=== PATIENT | male | born 1970 | race Caucasian/White ===

== ENCOUNTER 2019-03-14 09:50 | Emergency (ER) | payer SELFPAY ==
[2019-03-14 09:53] VITALS: BP 148/99; PULSE 58; RESP 18; TEMP 36.6; O2SAT 100
--- NOTE | 2019-03-14 10:04 | ED.GENADUL_ITS ---
Discharge Plan Disposition Patient Disposition: HOME Condition: Improving Discharge Details Chief Complaint: RespSymp Clinical Impression: Acute bronchitis Primary Care Provider: None,None ED Provider: Lars Emmanuel Home Meds and New Rx's Prescriptions: New amoxicillin-pot clavulanate 875-125 mg tablet 1 tab PO BID 10 Days Qty: 20 RF: 0 Discharge Instructions Instructions: Acute Bronchitis (ED) Additional Instructions: Home to rest. Small, frequent sips of fluids to maintain hydration. The staff at [facility] may assist you with exploring insurance opt ions. Take antibiotics as prescribed. Return for difficulty breathing, no worsening symptoms, or any other acute concern Medical Decision Making 49-year-old male with nearly 2+ weeks of cough with congestion, production of sputum, associated malaise, that he feels is getting worse. No current primary care physician. He is afebrile, well-appearing, with normal oxygenation. He does have mild rhonchi at the left base. Consistent with acute bronchitis, may be developing walking pneumonia. Will treat with a course of Augmentin. Referred to [facility] to establish with primary care and underlying basic insurance. He is stable for discharge at this time. HPI General Mode of arrival: ambulatory . Date/Time Provider Initiated Documentation: 03/14/19 09:53 . Limitations to Documentation: no limitations . Information obtained by: patient . History of Present Illness 49 year old M presents to the emergency department with the chief complaint of Cough and congestion worsening, described as moderate, Quality is described as constant, and is localized to the chest. Patient reports no radiation. Patient started experiencing this day(s) and it has been intermittent. No relieving factors improve symptom(s), No exacerbating factors reported . Patient notes cough, fever/chills and malaise; denies shortness of breath. Patient did receive the following treatments prior to arrival, other Related Data Home Medications Medication Instructions Recorded Confirmed amoxicillin-pot clavulanate 1 tab PO BID 10 Days #20 tab 03/14/19 Previous Rx's Medication Instructions Recorded amoxicillin-pot clavulanate 1 tab PO BID 10 Days #20 tab 03/14/19 Allergies Allergy/AdvReac Type Severity Reaction Status Date / Time No Known Allergies Allergy Unverified 03/14/19 09:58 General Stated Complaint: RespSymp JOURDAN: 4 Review of Systems Review of Systems Narrative: 6 systems reviewed and otherwise negative. No chest pain. No difficulty breathing. Mild production of sputum. [facility] Social History Smoking/Tobacco Use Status: Never Alcohol Intake: current Alcohol Intake frequency: 0-2 drinks per day Drug use: Never Do you feel safe at home: Yes Do you feel safe in your relationship?: Yes Exam Narrative Exam Narrative: GEN: awake, alert, oriented 3. Pleasant, well groomed, interactive. HEAD: Normocephalic, atraumatic ENT: Mucous membranes moist, oropharynx unremarkable, External ear exam unremarkable EYES: PERRL, EOMI NECK: Full ROM, no MANDI, no menigismus CHEST/RESP: Nontender, clear to auscultation bilateral, left base rhonchi CARDIOVASCULAR: RRR, no murmur, rub qamar. 2+ Rad pulse bilateral ABDOMEN: Soft, nontender, no mass. +Bowel sounds EXT: Full ROM, no edema, no rash Neuro: Grossly normal neurologic exam, conversant, interactive. Psych: Speech fluent, thoughts congruent, affect normal Course Vital Signs Vital signs: Vital Signs Temperature 36.6 C 03/14/19 09:53 Pulse 58 L 03/14/19 09:53 Respiratory Rate 18 03/14/19 09:53 Blood Pressure 148/99 H 03/14/19 09:53 Pulse Oximetry 100 03/14/19 09:53 Temperature 36.6 C 03/14/19 09:53 Temperature Source Skin 03/14/19 09:53 Pulse 58 L 03/14/19 09:53 Respiratory Rate 18 03/14/19 09:53 Respiratory Effort Non-Labored 03/14/19 09:58 Respiratory Depth Normal 03/14/19 09:58 Blood Pressure 148/99 H 03/14/19 09:53 Blood Pressure Position Sitting 03/14/19 09:53 Pulse Oximetry 100 03/14/19 09:53 Oxygen Delivery Method Room Air 03/14/19 09:53 Oxygen Flow Rate 0 03/14/19 09:53
[2019-03-14 10:10] VITALS: BP 148/99; PULSE 58; RESP 18; TEMP 36.6; O2SAT 100
== END 2019-03-14 10:13 | disposition home or self-care (01) ==
LOC: ER 10:57
PROVIDERS: Emergency Provider Emergency Medicine
DX: J20.9 Acute bronchitis, unspecified (principal); R53.81 Other malaise
CPT/HCPCS: 99283

== ENCOUNTER 2023-09-21 11:17 | Outpatient (REF) | payer SELFPAY ==
[2023-09-21 17:17] LABS: FREE T4 0.87 ng/dL (0.76-1.46); TSH 2.47 uIU/Ml (0.36-3.74)
[2023-09-21 23:42] LABS: HIV-1/2 Ag & Ab Screen Negative (Negative)
[2023-09-22 10:42] LABS: Lyme Ab w Rflx to Lyme Confirm Negative (Negative)
[2023-09-22 19:29] LABS: ALT 32 U/L (16-63); AST 17 U/L (15-37); Albumin 4.2 g/dL (3.4-5.0); Alkaline Phosphatase 52 U/L (46-116); Anion Gap 10.5 mmol/L (3-11); BUN 18 mg/dL (7-18); Bilirubin, Total 0.5 mg/dL (0.2-1.0); CO2 24.5 mmol/L (21.0-32.0); Calcium 9.3 mg/dL (8.5-10.1); Chloride 107 mmol/L (98-107); Estimated GFR 90.56 (mL/min/1.73m2); Glucose 99 mg/dL (74-106); Potassium 4.6 mmol/L (3.5-5.1); Sodium 142 mmol/L (136-145); Total Protein 7.1 g/dL (6.4-8.2)
[2023-09-23 15:07] LABS: Tissue Transglutaminase Ab IgA <1.2 U/mL (<4.0); Tissue Transglutaminase Ab IgG 4.7 U/mL
[2023-09-25 08:05] LABS: Anaplasma phagocytophilum Negative (Negative); B. miyamotoi PCR Negative (Negative); Babesia divergens/MO-1 Negative (Negative); Babesia duncani Negative (Negative); Babesia microti Negative (Negative); Ehrlichia chaffeensis Negative (Negative); Ehrlichia ewingii/canis Negative (Negative); Ehrlichia muris eauclairensis Negative (Negative)
== END 2023-09-21 11:18 | disposition home or self-care (01) ==
LOC: NCHCN 11:17
PROVIDERS: Visit Provider Student in an Organized Health Care Education/Training Program
DX: K52.9 Noninfective gastroenteritis and colitis, unspecified (principal)
CPT/HCPCS: 80053; 87329; 87389; 87798; 83516; 84439; 84443; 86618; 87177

== ENCOUNTER 2023-09-27 11:53 | Outpatient (REF) | payer SELFPAY ==
[2023-09-27 15:18] LABS: Abs Immature Grans 0.03 10^3/uL (0.0-0.06); Absolute Basophil Count 0.05 10^3/uL (0.0-0.2); Absolute Eosinophil Count 0.14 10^3/uL (0.0-0.7); Absolute Lymphocyte Count 1.11 10^3/uL (1.2-3.4); Absolute Monocyte Count 0.68 10^3/uL (0.1-0.8); Basophils % 0.9; Eosinophils % 2.4; HCT 43.4 % (40.0-50.0); HGB 15.4 g/dL (13.5-17.5); Immature Grans % 0.5; Lymphocytes % 19.1; MCHC 35.5 % (32.0-36.0); MCV 90 fL (80-95); MPV 10.7 fL (8.0-11.0); Monocytes % 11.7; Neutrophils % 65.4; Platelet Count 201 10^3/uL (130-400); RBC 4.82 10^6/uL (4.36-5.78); RDW 12.6 % (11.8-14.1); RDW-SD 41.2 fL; WBC 5.81 10^3/uL (4.4-10.8)
== END 2023-09-27 11:54 | disposition home or self-care (01) ==
LOC: NCHCN 11:53
PROVIDERS: Visit Provider Student in an Organized Health Care Education/Training Program
DX: K52.9 Noninfective gastroenteritis and colitis, unspecified (principal)
CPT/HCPCS: 85025

== ENCOUNTER 2023-09-29 15:02 | Outpatient (CLI) | payer SELFPAY ==
[2023-10-02 14:03] LABS: Zinc, S 96 mcg/dL (60-106)
== END 2023-09-29 15:03 | disposition home or self-care (01) ==
LOC: LBO 15:03
PROVIDERS: Visit Provider Student in an Organized Health Care Education/Training Program
DX: K52.9 Noninfective gastroenteritis and colitis, unspecified (principal)
CPT/HCPCS: 36415; 84630

== ENCOUNTER 2023-10-02 13:29 | Outpatient (REF) | payer SELFPAY ==
[2023-10-04 16:40] LABS: Calprotectin 58.6 mcg/g
== END 2023-10-02 13:30 | disposition home or self-care (01) ==
LOC: NCHCN 13:29
PROVIDERS: Visit Provider Student in an Organized Health Care Education/Training Program
DX: K52.9 Noninfective gastroenteritis and colitis, unspecified (principal)
CPT/HCPCS: 83993

== ENCOUNTER 2023-10-05 13:13 | Outpatient (CLI) | payer SELFPAY ==
[2023-10-05 13:38] LABS: ESR 3 mm/hr (0-20)
[2023-10-05 14:13] LABS: C-Reactive Protein 1.33 mg/dL (<or=0.5); Magnesium 1.8 mg/dL (1.8-2.4)
== END 2023-10-05 13:14 | disposition home or self-care (01) ==
LOC: LBO 13:14
PROVIDERS: PCP Student in an Organized Health Care Education/Training Program; Visit Provider Student in an Organized Health Care Education/Training Program
DX: K52.9 Noninfective gastroenteritis and colitis, unspecified (principal)
CPT/HCPCS: 36415; 84252; 84591; 85652; 83735; 84207; 86140

== ENCOUNTER 2023-10-05 14:30 | Outpatient (REF) | payer SELFPAY | END 2023-10-05 14:31 | disposition home or self-care (01) | LOC: NCHCN 14:30 | PROVIDERS: PCP Student in an Organized Health Care Education/Training Program; Visit Provider Student in an Organized Health Care Education/Training Program | DX: J02.9 Acute pharyngitis, unspecified (principal) | CPT/HCPCS: 87081 ==

== ENCOUNTER 2023-10-11 04:20 | Outpatient (CLI) | payer SELFPAY ==
[2023-10-14 08:51] LABS: Nicotinamide 30.8 ng/mL (5.0-48.0); Nicotinuric Acid <5.0 ng/mL
[2023-10-14 13:34] LABS: Riboflavin (Vitamin B2), P 8 mcg/L (1-19)
== END 2023-10-11 04:21 | disposition home or self-care (01) ==
PROVIDERS: PCP Student in an Organized Health Care Education/Training Program; Visit Provider Student in an Organized Health Care Education/Training Program
DX: K52.9 Noninfective gastroenteritis and colitis, unspecified (principal)
CPT/HCPCS: 36415; 84252; 84591